=== PATIENT | female | born 1955 | race Caucasian/White ===

== ENCOUNTER 2017-10-17 09:40 | Emergency (ER) | payer MEDICARE ==
[2017-10-17 10:12] VITALS: BP 120/81; PULSE 80; RESP 16; TEMP 98; O2SAT 98
--- NOTE | 2017-10-17 10:12 | ED PDOC ---
HPI: General Adult Time Seen by Provider: 10/17/17 10:10 Chief Complaint (Nursing): Lower Extremity Problem/Injury Chief Complaint (Provider): Left buttocks pain History Per: Patient Additional Complaint(s): 61-year-old female presents for evaluation of insect bite to left buttocks region. The patient sustained insect bite 4 days ago. She was seen by her primary doctor and started on doxycycline. Patient presents to ED complaining of stinging and burning pains affected area. She denies any active drainage or active bleeding, no fever or chills. PMD: Dr. Maryana Reynolds Past Medical History Reviewed: Historical Data, Nursing Documentation, Vital Signs Vital Signs: Last Vital Signs Temp 98.0 F 10/17/17 10:11 Pulse 80 10/17/17 10:11 Resp 16 10/17/17 10:11 BP 120/81 10/17/17 10:11 Pulse Ox 98 10/17/17 10:12 - Medical History PMH: Hypothyroidism - Surgical History Other surgeries: bilateral knee surgery - Family History Family History: States: No Known Family Hx - Living Arrangements Living Arrangements: With Family - Social History Current smoker - smoking cessation education provided: No Alcohol: None Drugs: Denies - Immunization History Hx Tetanus Toxoid Vaccination: Yes - Home Medications Home Medications: Ambulatory Orders Medication Instructions Recorded Sulfamethoxazole/Trimethopri 1 tab PO BID #14 tab 05/29/15 [Bactrim Ds 800 mg-160 mg] Naproxen [Naprosyn] 500 mg PO BID #20 tab 10/17/17 Prednisone 50 mg PO DAILY #5 tablet 10/17/17 - Allergies Allergies/Adverse Reactions: Allergies Allergy/AdvReac Type Severity Reaction Status Date / Time No Known Allergies Allergy Verified 05/29/15 14:58 Review of Systems ROS Statement: Except As Marked, All Systems Reviewed And Found Negative Constitutional: Negative for: Fever, Chills Skin: Positive for: Other (insect bite left buttocks) Physical Exam - Reviewed Nursing Documentation Reviewed: Yes Vital Signs Reviewed: Yes - Physical Exam Appears: Positive for: Well, Non-toxic, No Acute Distress Skin: Negative for: Rash Eye Exam: Positive for: Normal appearance Cardiovascular/Chest: Positive for: Regular Rate, Rhythm Respiratory: Positive for: Normal Breath Sounds Back: Positive for: Other (Pustular lesion noted to the left medial buttocks with localized erythema, no erythematous streaking, no abscess formation, no active drainage or bleeding, minimal tenderness to palpation) Extremity: Positive for: Normal ROM Neurologic/Psych: Positive for: Alert, Oriented - ECG O2 Sat by Pulse Oximetry: 98 Pulse Ox Interpretation: Normal Medical Decision Making Medical Decision Makin61 year old female with insect bite Plan: IM toradol PO prednisone 60 mg PO Patient was instructed to continue with doxycycline. Prescriptions given for Naprosyn and prednisone. Patient has follow up Friday with her primary doctor. Disposition - Clinical Impression Clinical Impression: Insect bite - Patient ED Disposition Is Patient to be Admitted: No Counseled Patient/Family Regarding: Diagnosis, Need For Followup, Rx Given - Disposition Referrals: Maryana Reynolds [Family Provider] - Disposition: Routine/Home Disposition Time: 11:18 Condition: STABLE Additional Instructions: CONTINUE WITH ANTIBIOTICS. TAKE ADDITIONAL MEDS DIRECTED ALONG WITH OVER THE COUNTER BENADRYL FOR ITCH RELIEF. FOLLOW UP SCHEDULED FRIDAY WITH YOUR PRIMARY CARE DOCTOR. Prescriptions: Naproxen [Naprosyn] 500 mg PO BID #20 tab Prednisone 50 mg PO DAILY #5 tablet Instructions: Insect Bites and Stings (DC) Forms: [employer] (acquired by [employer] in 2014) (Kinyarwanda)
== END 2017-10-17 11:29 | disposition home or self-care (01) ==
LOC: H.ER 09:40
DX: T14.8XXA Other injury of unspecified body region, initial encounter (principal); W57.XXXA Bitten or stung by nonvenomous insect and other nonvenomous arthropods, initial encounter; Y92.89 Other specified places as the place of occurrence of the external cause; E03.9 Hypothyroidism, unspecified
CPT/HCPCS: 96372; 99282; J1885